=== PATIENT | male | born 2000 | race African-American/Black ===

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

== ENCOUNTER 2020-01-27 22:41 | Emergency (ER) | payer MEDICAID ==
[~2020-01-27] VITALS: Ht 182.9 cm; Wt 72.6 kg
[2020-01-27 23:27] LABS: Basophils # (auto) 0 10 ^3/uL (0-0.2); Basophils % (auto) 0.5 % (0.0-2.0); Eosinophils # (auto) 0.1 10 ^3/uL (0-0.8); Eosinophils % (auto) 1.4 % (0.0-7.0); Hematocrit 41.3 % (41.0-53.0); Hemoglobin 13.8 g/dL (13.5-17.5); Lymphocytes # (auto) 1.2 10 ^3/uL (0.4-5.4); Lymphocytes % (auto) 18.2 % (10.0-50.0); Mean Corpuscular Hemoglobin 30.1 pg (28.0-32.0); Mean Corpuscular Hgb Conc. 33.5 g/dL (32.0-36.0); Mean Corpuscular Volume 89.9 fL (80.0-100.0); Monocytes # (auto) 0.7 10 ^3/uL (0-1.3); Monocytes % (auto) 11.5 % (0.0-12.0); Neutrophils # (auto) 4.4 10 ^3/uL (1.6-8.6); Neutrophils % (auto) 68.4 % (37.0-80.0); Nucleated Red Blood Cells % 0.1 %; Platelet Count (auto) 247 10^3/uL (140-450); White Blood Cell 6.5 10^3/uL (4.4-10.8)
[2020-01-28 00:03] LABS: Acetaminophen < 2.0 ug/mL (10-30); Salicylate 2.4 mg/dL (2.8-20.0)
[2020-01-28 00:04] LABS: Alanine Aminotransferase 11 U/L (16-61); Albumin 4.1 g/dL (3.4-5.0); Anion Gap 6 (5-15); Aspartate Aminotransferase 9 U/L (15-37); BUN/Creatinine Ratio 7.7; Blood Alcohol < 3.0 mg/dL (0-5); Blood Urea Nitrogen 5 mg/dL (7-18); Calcium 8.3 mg/dL (8.5-10.1); Carbon Dioxide 25 mmol/L (21-32); Chloride 108 mmol/L (98-107); GFR African American 204 mL/min; GFR Non-African American 168 mL/min; Glucose 97 mg/dL (74-106); Magnesium 2.5 mg/dL (1.6-2.6); Potassium 3.7 mmol/L (3.5-5.1); Sodium 139 mmol/L (136-145)
[2020-01-28 00:06] LABS: Alkaline Phosphatase 59 U/L (45-117); Bilirubin, Total 0.2 mg/dL (0.2-1.0); Total Protein 7.1 g/dL (6.4-8.2)
[2020-01-28] MEDS ORDERED: LORazepam 0.5 MG TAB PO ONE (00:45)
[2020-01-28] MEDS ORDERED: HYDR1CAP27 PO (11:16)
[2020-01-28] MEDS ORDERED: SERT-376 PO (11:16)
[2020-01-28 12:33] LABS: Urine Bacteria NONE SEEN /hpf (None Seen); Urine Blood Negative /uL (Negative); Urine Mucus FEW (None Seen); Urine WBC 1 /hpf (0 - 3)
[2020-01-28 12:52] LABS: Alcohol, Urine < 3.0 mg/dL (0-10); Amphetamine Screen, Urine NEGATIVE (NEGATIVE); Barbiturate Scree,Urine NEGATIVE (NEGATIVE); Benzodiazephine Screen, Urine NEGATIVE (NEGATIVE); Cannabinoid Screen, Urine POSITIVE (NEGATIVE); Cocaine Screen, Urine NEGATIVE (NEGATIVE); Opiate Scree,Urine NEGATIVE (NEGATIVE); Phencyclidine Screen, Urine NEGATIVE (NEGATIVE)
[2020-01-28] MEDS ORDERED: LORazepam 2MG/ML-1ML VIAL IM ONE (23:30)
[2020-01-29 09:01] VITALS: BP 132/83
== END 2020-01-29 07:48 | disposition short-term general hospital (02) ==
LOC: EDBD 22:41 → ER 22:51
DX: T43.221A Poisoning by selective serotonin reuptake inhibitors, accidental (unintentional), initial encounter (principal); T43.591A Poisoning by other antipsychotics and neuroleptics, accidental (unintentional), initial encounter; R44.1 Visual hallucinations; F23 Brief psychotic disorder; F41.9 Anxiety disorder, unspecified; F32.9 Major depressive disorder, single episode, unspecified; Z03.818 Encounter for observation for suspected exposure to other biological agents ruled out; Y92.89 Other specified places as the place of occurrence of the external cause
CPT/HCPCS: 36415; 80053; 80307; 80320; 80329; 81001; 83735; 85025; 87426; 93005; 96372; 99285; J2060